=== PATIENT | male | born 1965 | race Caucasian/White ===

== ENCOUNTER 2025-04-14 22:20 | Inpatient (IN) | payer OTHER, SELFPAY ==
[2025-04-14 18:19] VITALS: BP 149/86
[2025-04-14 18:52] LABS: Hematocrit 44.1 % (39.0-52.0); Hemoglobin 15.1 g/dL (13.0-18.0); Mean Corp Hgb Conc. 34.2 g/dL (33.0-37.0); Mean Corpuscular Volume 87.8 fL (80.0-94.0); Nucleated Red Blood Cells % 0 % (-); Platelet Count 270 10^3/uL (130-400); Red Cell Dist. Width 12.2 % (11.5-14.5)
[2025-04-14 19:13] LABS: ALT (SGPT) 26 U/L (0-50); AST (SGOT) 17 U/L (17-59); Albumin 4.7 g/dl (3.5-5.0); Alkaline Phosphatase 72 U/L (38-126); Blood Urea Nitrogen 27 mg/dl (9-20); Calcium 9.9 mg/dl (8.4-10.2); Carbon Dioxide 23 mmol/L (22-30); Chloride 102 mmol/L (98-107); Glucose 228 mg/dl (70-99); Potassium 5.1 mmol/L (3.5-5.1); Sodium 139 mmol/L (135-145); Total Protein 7.8 g/dl (6.3-8.2); eGFR > 60.00
--- NOTE | 2025-04-14 19:55 | ED.GENMED ---
History of Present Illness
General
Chief Complaint: Skin Problem
Source: patient and family
Time Seen by Provider: 04/14/25 19:39
History of Present Illness
History of Present Illness:
This patient is a 59-year-old male who says he was feeling perfectly well until Wednesday or Wednesday when he noticed that his right foot was 'sore'. He says he inspects his feet every night and he did not notice any abnormality such as swelling or
redness. He thought it may be related to the [place] he was doing in the garden. , he also noted his foot was sore but again no skin abnormalities noted. However, yesterday, he noted increasing pain associated with an area of redness and
an actual open 'sore' at the top of his right foot. He saw his PCP and was started on Augmentin 875 twice daily. He has been compliant with his antibiotics. However, today he notes increasing pain as well as redness and swelling. He denies
fever, chills, anorexia, nausea, vomiting, numbness, tingling, or other complaints.
Past History
Past History
ED Past Medical History: HTN, Hypercholesterolemia and IDDM
ED Past Surgical History: Other (Retinal detachment)
Social History
Tobacco: Non-smoker
Alcohol: Occasional
Drug: Marijuana
Personal:
Phy Exam
Physical Exam
Physical Exam:
GENERAL: Alert , in no apparent distress
EYE: pupils equal and reactive
NECK: Supple, no significant adenopathy.
ENT: o/p clr, mmm.
CARDIAC: Regular rate and rhythm .
LUNGS: Clear breath sounds bilaterally, no acute respiratory distress, no wheezes/rales/rhonchi
ABDOMEN: Soft, without focal tenderness, no r/g, no cvat
NEUROLOGICAL: Alert and oriented, no focal neuro deficits
SKIN: Warm and dry, there is an approx 2 cm open superficial wound at distal R forefoot, wet but without active drainage, with surround eryhtmea/warmth/swelling/ttp extend to prox forefoot (edema to ankle/lower calf). No crepitus, streaking.
Pulses nl
MUSCULOSKELETAL: Well perfused.
PSYCH: Normal and appropriate interaction.
Sepsis
Sepsis Screening
Sepsis Assessment: Sepsis
Sepsis Screen
Sepsis Screen: Sepsis
Date: 04/14/25
Time: 21:27
Course
Orders/Labs/Results
Orders:
Orders
04/14/25 18:36
Complete Blood Count/With Diff Urgent
Comprehensive Metabolic Panel Urgent
Lactic Acid Q4H
Comment: ON ICE, CANCEL 2ND ORDER IF FIRST LACTIC ACID LEVEL <2
Blood Culture Urgent
LUCIA Source: Blood/Venous
Specimen Description:
04/14/25 19:53
Ampicillin/Sulbactam 3 G [Unasyn] 3 gm 0.9% Sodium Chloride 100 ml [Nss] 100 ml IV NOW
Vancomycin [Vancocin] 2,000 mg 0.9% Sodium Chloride 500 ml [Nss] 500 ml IV NOW
CR Foot - Right Min 3 Views Urgent
Comment:
Reason For Exam: diabetes, foot infx
US Legs, Right [US Periph Venous LOWER Ext RT] Urgent
Comment:
Reason For Exam: swelling
04/14/25 20:08
Ampicillin/Sulbactam 3 G [Unasyn] 3 gm 0.9% Sodium Chloride 100 ml [Nss] 100 ml IV NOW
Vancomycin [Vancocin] 2,000 mg 0.9% Sodium Chloride 500 ml [Nss] 500 ml IV NOW
04/14/25 20:18
Morphine Sulfate 4 mg IV NOW STA
04/14/25 20:34
EKG [Electrocardiogram (*1)] Urgent
Reason for Study: Tachycardia
04/14/25 20:41
0.9% Sodium Chloride 1000 ml [Nss] 2,500 ml IV NOW STA
04/14/25 22:30
Lactic Acid Q4H
Comment: ON ICE, CANCEL 2ND ORDER IF FIRST LACTIC ACID LEVEL <2
Abnormal Lab Results
04/14/25
18:36
WBC 14.3 H 10^3/uL
(4.8-10.8)
Abs Immat Gran (auto) 0.1 H 10^3/uL
(0-0.05)
Absolute Neuts (auto) 10.6 H 10^3/uL
(1.4-6.5)
Absolute Monos (auto) 1.6 H 10^3/uL
(0.1-0.6)
Lymphocytes % 12.4 L %
(20.5-51.1)
Monocytes % 11.3 H %
(1.7-9.3)
BUN 27 H mg/dl
(9-20)
Glucose 228 H mg/dl
(70-99)
04/14/25 18:36
04/14/25 18:36
Vital Signs
Initial and Last Documented VS:
Initial Vital Signs
Temp Pulse Resp BP Pulse Ox
99.4 F 116 18 149/86 98
04/14/25 18:19 04/14/25 18:19 04/14/25 18:19 04/14/25 18:19 04/14/25 18:19
Last Documented Vital Signs
Temp Pulse Resp BP Pulse Ox
99.4 F 116 18 149/86 98
04/14/25 18:19 04/14/25 18:19 04/14/25 18:19 04/14/25 18:19 04/14/25 19:58
*Pulse Oximetry
SaO2: 98
Oxygen Mode of Delivery: Room air
Patient hypoxic: no
*Critical Care Note
Total Time (30-74mins, 75-104mins- exclusive of procedures): Not Applicable
Update Note
Update Note:
Patient presents to the Emergency Department with right foot redness and swelling
Number and Complexity of Problems Addressed at the Encounter
� Chronic conditions affecting care:
� Acute Exacerbation and/or Progression of Chronic Illness:
� Differential Diagnosis includes: Not limited to cellulitis, abscess, osteomyelitis, DVT, etc. etc.
Amount and/or Complexity of Data to be Reviewed and Analyzed
� I performed an independent evaluation of and my interpretation is:
EKG:
CT:
Xrays: Read by me NAD
Laboratory Studies: Leukocytosis noted, mild prerenal azotemia, mild hyperglycemia
Other: Ultrasound lower extremity read by vision no DVT noted
� Review of other/old records reveals:
� Clinical information was obtained by an independent historian: Ex- who is at bedside and retrieved his antibiotics so that she was able to specifically identify what he was taking.
� Prescriptions/Medications Considered but not given:
� Further testing considered but not performed:
Risk of Complications and/or Morbidity or Mortality of Patient Management
� Social determinants of health affecting care:
� Discussion with other providers (PCP, Hospitalists, Consultants, etc):
� Escalation of care including admission/observation vs risk of discharge considered: Case discussed with Dr. Isra Paz for admission to the hospital.
ED Attending Note
-
Portions of this chart may have been created with voice recognition software.� Occasional wrong word or��sound alike� substitutions may have occurred due to the inherent limitations of voice recognition software.
Discharge Plan
Departure
Patient Disposition: Admit
Date of Disposition: 04/14/25
Time of Disposition: 20:21
Admit to: Telemetry
Presentation/result/management discussed w/ accepting MD/DO: Hospitalist
Condition: Fair
Discharge Problem:
Diabetic foot infection
Referrals:
UNKNOWN - PT DOES,NOT KNOW [Unknown Provider]
Interventions
Interventions:
*Risk Screen - Suicide Last Done: 04/14/25 18:19
*General Assessment Last Done: 04/14/25 18:19
*Neglect/Abuse Screening Last Done: 04/14/25 18:19
Discharge Date and Time
Print Language: ICELANDIC
[2025-04-14] MEDS: MORPHINE SULFATE 4 MG IV (20:30)
[2025-04-14 20:45] VITALS: BMI 27.0
[2025-04-14] MEDS: UNASYN IV (21:12)
[2025-04-14] MEDS: NSS 2500 ML IV (21:16)
[2025-04-14 21:44] VITALS: BP 133/68
--- NOTE | 2025-04-14 21:48 | HPS.HSE ---
Family Physician
-
Family Physician: Narinder Fitzpatrick
Chief Complaint
-
R Foot Pain
History of Present Illness
Patient is a 59y M with PMH significant for DM-II who presents to ED complaining of R foot pain and redness. Patient states that he was doing digging in his yard on Wednesday and noted some discomfort in his R foot which he attributed to the
activity. He noted some persistent pain since that time but no skin changes, redness, etc. On Wednesday AM he woke to find his R foot very swollen, red and with wound on the dorsum of the foot between the first and second digits. He was seen by his
PCP and prescribed Augmentin. Today he noted that his pain and swelling were increased and he presented to the ED for further evaluation.
Patient had nausea with a single episode of nausea here in the ED.
No fevers / chills.
Medical History
Past Medical History
Past Medical History: Reports Other
Additional Past Medical History:
DM-II
Hypertension
Hyperthyroidism
Past Surgical History: Reports Other
Additional Past Surgical History:
Left Hand Surgery
Social History
Tobacco: Former Smoker
Alcohol: None
Drug: Marijuana
Family History
Family History: Not pertinent
Allergies / Home Medications
Allergies reflects when Allergies were last updated in [employer].
Home Medications with original date entered in [employer]
Allergy/Medication List:
Allergies
Allergy/AdvReac Type Severity Reaction Status Date / Time
No Known Allergies Allergy Unverified 04/14/25 18:18
Home Medications
amoxicillin 875 mg-potassium clavulanate 125 mg tablet 1 tab PO BID 04/14/25
empagliflozin 25 mg tablet (Jardiance) 25 mg PO DAILY 04/14/25
insulin lispro 100 unit/mL subcutaneous solution 04/14/25
lisinopril 10 mg tablet 10 mg PO DAILY 04/14/25
methimazole 5 mg tablet 5 mg PO HS 04/14/25
rosuvastatin 5 mg tablet 5 mg PO HS 04/14/25
Review of Systems
-
History Source: Patient
A 12 point ROS was completed and negative except as noted: Yes
Constitutional: Denies Fever or Chills
Respiratory: Denies Cough or Trouble Breathing
Cardiac: Denies Chest Pain or Palpitations
Abdomen/GI: Reports Nausea and Vomiting; Denies Abdominal Pain or Diarrhea
Musculoskeletal: Reports Joint Pain, Joint Swelling and Edema
Skin: Reports Other (Redness / R foot wound.)
Neurological: Denies Dizzy or Headache
Physical Exam
Vital Signs
Vital Signs
Temp Pulse Resp BP Pulse Ox
99.4 F 100 14 133/68 98
04/14/25 18:19 04/14/25 21:44 04/14/25 21:44 04/14/25 21:44 04/14/25 21:44
Physical Exam
General: Other (59y M in no acute distress.)
HEENT: Moist mucous membranes and PERRLA
Respiratory: Clear; No Wheezes, Rales or Rhonchi
Cardiac: S1/S2 and Regular Rhythm; No Murmur
GI: Soft, Non Tender, Non Distended and Normal Bowel Sounds
Musculoskeletal: No Clubbing, No Cyanosis and Other (Edema of the R foot.)
Skin: Other (Erythema over the dorsum of the R foot. Superficial, crusted wound between 1st / 2nd toes.)
Neuro: AO x 3
Laboratory Results
-
04/14/25 18:36
04/14/25 18:36
Laboratory Results
Lactic Acid 1.7 mmol/L (0.7-2.0) 04/14/25 18:36
Total Bilirubin 0.8 mg/dl (0.2-1.3) 04/14/25 18:36
AST 17 U/L (17-59) 04/14/25 18:36
ALT 26 U/L (0-50) 04/14/25 18:36
Alkaline Phosphatase 72 U/L (38-126) 04/14/25 18:36
Impression/Plan
-
A/P: Patient is a 59y M with PMH significant for HTN and DM-II who presents to ED complaining of R foot pain, swelling and redness.
Diabetic Foot Infection
Sepsis secondary to the above
- Admit for further evaluation and treatment.
- Patient presented with temp = 99.4, tachycardia, leukocytosis and evident R foot infection.
- IV abx with Vanco / Zosyn for now.
- Podiatry evaluation for additional recommendations.
- US in the ED negative for DVT.
- X-ray with no evident bony changes.
- Follow temp curve and monitor for any new symptoms / complaints.
DM-II
- Stable. Continue own insulin pump / monitoring.
- Continue Jardiance.
- Update A1C.
Benign Hypertension
- Stable. Continue current med regimen with holding parameters.
Hyperthyroidism
- Continue methimazole.
- Monitor for tachyarrhythmia, hyperglycemia, etc.
- Update TFTs.
DVT Prophylaxis: Lovenox
Code Status: Full
[2025-04-14] MEDS: VANCOCIN 540 MG IV (21:49)
[2025-04-14 23:00] VITALS: BP 143/86
--- NOTE | 2025-04-14 23:04 | PHA.VAN.IN ---
Assessment
- Assessment
Renal Function: Unknown baseline
Maximum Temperature: 99.4F
Concomitant Antimicrobials: Zosyn
AUC Dosing Plan
- Dosing Variables
Dosing Weight (kg): 80.4
Dosing CrCl (ml/min): 58
Vd coefficient (L/kg): 0.7
- Empiric Dosing
Initial / Loading Dose: 2000MG X1
Maintenance Regimen: 1500MG Q24H
Estimated AUC (mcg*h/mL): 527
Estimated Peak (mcg*h/mL): 37.2
Estimated Trough (mcg/ml): 11.4
Estimated Half Life (H): 13.2
- Monitoring
No levels ordered at this time: Awaiting steady state
Pharmacokinetics Vancomycin I
- -
Patient Age: 59
Patient Sex: Male
Vancomycin Day #: 1
Indication: Diabetic Foot
Requesting Provider: Jackson
Pertinent Antimicrobial Allergies:
NKDA
Height / Weight:
Height 5 ft 8 in
Actual Weight 80.4 kg
Pertinent Past Medical History: R foot wound when digging in garden, Augmentin failure
- Vital Signs / Lab Results
Temp Pulse Resp BP Pulse Ox
99.4 F 100 14 133/68 98
04/14/25 18:19 04/14/25 21:44 04/14/25 21:44 04/14/25 21:44 04/14/25 21:44
Lab Results - Hematology
04/14/25
18:36
WBC 14.3 H
Lab Results - Chemistry
04/14/25
18:36
BUN 27 H
Creatinine 1.3
Albumin 4.7
04/14/25 04/14/25
18:36 18:36
Lactic Acid 1.7 Cancelled
[2025-04-14] MEDS: CRESTOR 5 MG PO (23:36)
[2025-04-14] MEDS: TAPAZOLE 5 MG PO (23:36)
[2025-04-15] MEDS: PT'S OWN INSULIN PUMP - HumaLOG SC ×2 (00:05→07:09)
[2025-04-15] MEDS: ZOSYN 50 IV ×4 (02:12→21:01)
[2025-04-15 06:00] VITALS: BMI 27.1
[2025-04-15 07:15] VITALS: BP 159/86
[2025-04-15 08:07] LABS: Glucose - Point of Care 82 mg/dl (70-99)
[2025-04-15 08:09] LABS: Blood Urea Nitrogen 22 mg/dl (9-20); Calcium 9.0 mg/dl (8.4-10.2); Carbon Dioxide 22 mmol/L (22-30); Chloride 109 mmol/L (98-107); Estimated Creatinine Clearance 75 ml/min; Glucose 83 mg/dl (70-99); Potassium 4.9 mmol/L (3.5-5.1); Sodium 139 mmol/L (135-145); eGFR > 60.00
--- NOTE | 2025-04-15 08:18 | PHA.VAN.FU ---
Addendum entered and electronically signed by Felipe Bernal [facility] 04/15/25 08:24:
change to 1000mg q12h, crcl ~75ml/min, should provide ikt=486, trough=15.4, t1/2=10.4hr
Original Note:
Vancomycin Assessment / Plan
- Assessment
Renal Function: SCR Decreasing
WBC's are: Stable
In the past 24 hrs, patient has been: Afebrile
Concomitant Antimicrobials: ZOSYN
- Dosing Plan
Continue: 1500MG Q24H
- Monitoring Plan
No level(s) ordered at this time: CONSIDER AT STEADY STATE
- Follow Up
Pharmacy will continue to follow.
Vancomycin Follow UP
- -
Patient Age: 59
Patient Sex: Male
Vancomycin Day #: 2
Indication: Diabetic Foot
Requesting Provider: Jackson
Pertinent Antimicrobial Allergies:
NKDA
Height / Weight:
Height 5 ft 8 in
Actual Weight 80.853 kg
Pertinent Past Medical History: R foot wound when digging in garden, Augmentin failure
- Vital Signs / Lab Results
Temp Pulse Resp BP Pulse Ox
98.4 F 92 18 159/86 97
04/15/25 07:15 04/15/25 07:15 04/15/25 07:15 04/15/25 07:15 04/15/25 07:15
Lab Results - Hematology
04/14/25
18:36
WBC 14.3 H
Lab Results - Chemistry
04/14/25 04/15/25
18:36 07:00
BUN 27 H 22 H
Creatinine 1.3 1.0
Estimated Creat Clear 75
Albumin 4.7
04/14/25 04/14/25
18:36 18:36
Lactic Acid 1.7 Cancelled
[2025-04-15 08:58] LABS: Hepatitis C Antibody Negative (Negative)
[2025-04-15] MEDS: ZESTRIL 10 MG PO (09:09)
[2025-04-15] MEDS: FARXIGA 10 MG PO (09:10)
[2025-04-15 09:22] LABS: Hematocrit 38.5 % (39.0-52.0); Hemoglobin 13.0 g/dL (13.0-18.0); Mean Corp Hgb Conc. 33.8 g/dL (33.0-37.0); Mean Corpuscular Volume 89.1 fL (80.0-94.0); Platelet Count 210 10^3/uL (130-400); Red Cell Dist. Width 12.1 % (11.5-14.5)
--- NOTE | 2025-04-15 10:27 | W.PN.HOSP.TC ---
Today's Communication/Plan
-
Continue antibiotics
Assessment / Plan
Assessment / Plan
Patient is a 59y M with PMH significant for HTN and DM-II who presents to ED complaining of R foot pain, swelling and redness.
Abnormal ECG
1. Diabetic Foot Infection with Sepsis secondary to the above
- Patient presented with temp = 99.4, tachycardia, leukocytosis and evident R foot infection.
- IV abx with Vanco / Zosyn for now.
- Podiatry evaluation for additional recommendations.
- US in the ED negative for DVT.
- X-ray with no evident bony changes.
- Follow temp curve and monitor for any new symptoms / complaints.
2. DM-II - Stable. Insulin dependent
Continue own insulin pump / monitoring.
- Continue Jardiance.
- Update A1C.
3. Benign Hypertension - Stable.
Continue current med regimen with holding parameters.
4. Hyperthyroidism
- Continue methimazole.
- Monitor for tachyarrhythmia, hyperglycemia, etc.
- Update TFTs.
5. Abnormal ECG - no symptoms
Outpatient follow up
Will need risk stratification
DVT Prophylaxis: Lovenox
Code Status: Full
Anticipated Discharge: 24 - 48 hours
Subjective/Interval History
-
Date of Service: April 15, 2025
No new problems.
Objective Data
-
Labs:
Laboratory Results
04/15/25 04/15/25
07:00 07:01
WBC 10.3
Hgb 13.0
Hct 38.5 L
Plt Count 210 D
Sodium 139
Potassium 4.9
Chloride 109 H
Carbon Dioxide 22
BUN 22 H
Creatinine 1.0
Glucose 83
Calcium 9.0
Vital Signs:
Vital Signs
Temp Pulse Resp BP Pulse Ox
98.4 F 92 18 159/86 97
04/15/25 07:15 04/15/25 09:09 04/15/25 07:15 04/15/25 09:09 04/15/25 07:15
I&O
04/14/25 04/15/25 04/16/25
06:59 06:59 06:59
Intake Total 480 / 480
Balance 480 / 480
Review of Systems
-
History Source: Patient
All other systems: Reviewed and negative
Physical Exam
-
General: Well Developed, Well Nourished, No Apparent Distress and Comfortable
HEENT: Normocephalic, Atraumatic, Moist Mucous Membranes, Nose Appears Normal and Ears Appear Normal
Respiratory: Clear to Auscultation
Cardiac: Regular Rhythm and S1/S2
GI: Soft, Nontender and Nondistended
Musculoskeletal: No Clubbing, No Cyanosis and No Edema
Skin: Warm, Dry and Lesions (red right foot with wound on top.)
Neuro: Awake, Alert, Oriented and AO x 3
Psych: Calm
Data Reviewed
-
Labs: Labs Reviewed by me
--- NOTE | 2025-04-15 12:15 | W.CS.POD ---
Addendum entered and electronically signed by Riaz Cruz DPM 04/19/25 12:22:
ADDENDUM:
With the use of a #15 blade, the wound and suspected underlying abscess of the dorsal right forefoot, just proximal to the first interdigital space, was incised, approximately 0.5cm in length and 2-3mm in depth, resulting in 0.5 cc of seropurulent
discharge. This was further expressed from the foot. The wound/purulence was cultured, and the area thoroughly irrigated with saline. In addition, with the use of a #15 blade, excisional debridement of partial skin thickness, necrotic and fibrinous
soft tissue removal was performed on the dorsal right forefoot wound.
Original Note:
Consult Summary - Podiatry
-
Patient is a 59 year old male with PMH of Type 2 Diabetes Mellitus, Hypertension, and Hyperthyroidism admitted yesterday for a diabetic wound infection and cellulitis of his right foot. The patient relates having been working/digging in the yard 6
days ago and experienced some mild pain in the foot at the end of the day and the next. 4 days later he noticed development of significant redness, swelling and pain along with a 'blister' over the top of the right foot at the base of the first and
second toes. He visited his PCP that same day ([facility]) and was given RX for Augmentin. When his symptoms did not improve yesterday, he presented to the ED.
Today he denies fever, chills or sweats and reports the redness and swelling is significantly less intense today. He reports only mild discomfort in the right foot.
PMH, Medications and Allergies reviewed in chart
-WBC 14.3 on admission, 10.3 today
-LE U/S in ED negative for DVT
-Blood Cultures: PND
-Patient currently on IV Vanco/Zosyn
-No Wound Culture taken.
04/14/25 XRAYS RIGHT FOOT:
No ossous erosion, periosteal reaction, or cortical disruption note. Mild increase in soft tissue density of the forefoot dorsally and plantarly. No gas in the tissues. No evidence of osteomyelitis.
Afebrile, Mildly hypertensive
LE exam:
Vascular status to LE's grossly intact. Mild decrease in protective sensation to the forefoot, bilaterally.
There is a bullous skin lesion/wound approximately 1.5-2.0 cm diameter at the base of the first/second toe interspace dorsally. There is superficial crusting and underlying maceration locally but no active discharge. Light debridement of the wound
reveals a 0.5cm defect, full skin thickness with 1cc of purulent discharge expressed. This does not probe into the deep interspace, however there is mild pain elicited with pressure dorsally and plantarly. The cellulitis extends 4-5cm proximally
from the wound/interspace dorsally. No cellulitis extending plantarly.
Assessment:
Diabetic infection, right foot with cellulitis.
DM-II with mild peripheral neuropathy.
Hypertension
Hyperthyroidism
Plan:
With a #15 blade, Light partial skin thickness debridement of non-viable tissue of the dorsal right foot at beside, with purulence encountered.
Wound culture taken at bedside, the extent of cellulitis marked, and dressing applied.
Continue on IV antibiotics. Wound care orders.
Will monitor over next day or so and if no progress is made, will consider MRI to rule out deeper space abscess.
[2025-04-15 12:35] LABS: Glycohemoglobin (HgbA1c) 7.6 % (4.0-5.6)
[2025-04-15 13:11] LABS: Glucose - Point of Care 111 mg/dl (70-99)
--- NOTE | 2025-04-15 15:14 | CM ---
station manager reviewed patient's chart and met with patient and patient's daughters live with him in a multilevel home, patient was independent with adl's and ambulation, no dme. patient with right foot wound home when stable, no needs.
Plan; Home no needs.
PCP: Dr Fitzpatrick
Pharmacy: [facility] in [place].
[2025-04-15] MEDS: PT'S OWN INSULIN PUMP - HumaLOG 7.3 UNIT SC (15:39)
[2025-04-15 15:58] VITALS: BP 154/76
[2025-04-15] MEDS: DILAUDID 0.5 MG IV (16:23)
[2025-04-15 17:08] LABS: Glucose - Point of Care 112 mg/dl (70-99)
[2025-04-15] MEDS: LOVENOX 40 MG SC (17:16)
[2025-04-15] MEDS: VANCOCIN 200 IV (17:17)
[2025-04-15] MEDS: PT'S OWN INSULIN PUMP - HumaLOG 12.5 UNIT SC (18:00)
[2025-04-15] MEDS: CRESTOR 5 MG PO (21:01)
[2025-04-15] MEDS: TAPAZOLE 5 MG PO (21:01)
[2025-04-15 21:33] LABS: Glucose - Point of Care 288 mg/dl (70-99)
[2025-04-15 23:00] VITALS: BP 149/84
[2025-04-16] MEDS: ZOSYN 50 IV ×4 (02:20→20:49)
[2025-04-16] MEDS: VANCOCIN 200 IV ×2 (05:21→18:14)
[2025-04-16 06:00] VITALS: BMI 26.9
[2025-04-16 07:00] VITALS: BP 134/80
[2025-04-16 07:32] LABS: Glucose - Point of Care 125 mg/dl (70-99)
[2025-04-16] MEDS: FARXIGA 10 MG PO (08:02)
[2025-04-16 08:20] LABS: Hematocrit 41.7 % (39.0-52.0); Hemoglobin 14.0 g/dL (13.0-18.0); Mean Corp Hgb Conc. 33.6 g/dL (33.0-37.0); Mean Corpuscular Volume 88.7 fL (80.0-94.0); Platelet Count 243 10^3/uL (130-400); Red Cell Dist. Width 12.0 % (11.5-14.5)
[2025-04-16] MEDS: ZESTRIL 10 MG PO (08:52)
[2025-04-16] MEDS: PT'S OWN INSULIN PUMP - HumaLOG 6.65 UNIT SC (09:23)
[2025-04-16 10:28] LABS: Blood Urea Nitrogen 20 mg/dl (9-20); Calcium 9.1 mg/dl (8.4-10.2); Carbon Dioxide 23 mmol/L (22-30); Chloride 105 mmol/L (98-107); Estimated Creatinine Clearance 68 ml/min; Glucose 104 mg/dl (70-99); Potassium 4.4 mmol/L (3.5-5.1); Sodium 139 mmol/L (135-145); eGFR > 60.00
--- NOTE | 2025-04-16 10:31 | W.PN.POD ---
Today's Communication
Today's Communication
Interim reduction in edema/cellulitis. No purulence.
Continue IV Antibiotics. Will follow.
Assessment / Plan
-
Assessment:
Diabetic infection, right foot with cellulitis.
DM-II with mild peripheral neuropathy.
Hypertension
Hyperthyroidism
Plan:
Edema significantly reduced, cellulitis consolidating.
Continue on IV antibiotics.
Await full culture results.
Wound care consult.
Will continue to monitor progress, and if no progress is made, will consider MRI to rule out deeper space abscess.
Subjective
Chief Complaint
Diabetic infection, right foot.
Subjective
Patient resting comfortably, reporting decrease in pain in the foot. 'Feels like a sunburn now.'
Objective
-Blood culture: 24 hours, no growth
-Wound Culture: Prelim: Moderate gram positive cocci.
-WBC 14.3 on admission, 9.6 today
-BG 104
-Patient currently on IV Vanco/Zosyn
04/14/25 XRAYS RIGHT FOOT:
No ossous erosion, periosteal reaction, or cortical disruption note. Mild increase in soft tissue density of the forefoot dorsally and plantarly. No gas in the tissues. No evidence of osteomyelitis.
Temp Pulse Resp BP Pulse Ox
98.5 F 80 14 134/80 99
04/16/25 07:00 04/16/25 08:52 04/16/25 07:00 04/16/25 08:52 04/16/25 07:00
04/16/25 06:44
04/16/25 09:03
Vital Signs and Lab results were reviewed.
Afebrile, VSS.
LE exam:
Vascular status to LE's grossly intact. Mild decrease in protective sensation to the forefoot, bilaterally.
Moderate reduction in edema of the right foot, specifically of the dorsal forefoot, with localized deepening of the redness noted, likely ecchymotic in nature.
Bullous skin lesion/wound approximately 1.5-2.0 cm diameter at the base of the first/second toe interspace dorsally. Today there is maceration locally, seemingly consolidating, with no active discharge. No malodor.
Full skin thickness defect approximately 0.5cm probes to a depth of 0.4cm however this does not probe into the deep interspace. Much less pain elicited with pressure dorsally and plantarly.
--- NOTE | 2025-04-16 10:41 | PHA.VAN.FU ---
Vancomycin Assessment / Plan
- Assessment
Renal Function: Stable
WBC's are: WNL
In the past 24 hrs, patient has been: Afebrile
Concomitant Antimicrobials: PIPERACILLIN/TAZOBACTAM
- Dosing Plan
Continue: VANCO 1000MG Q12H
- Monitoring Plan
Peak Level: 04/16 @2100
Trough Level: 04/17 @0530
- Follow Up
Pharmacy will continue to follow.
Vancomycin Follow UP
- -
Patient Age: 59
Patient Sex: Male
Vancomycin Day #: 3
Indication: Diabetic Foot
Requesting Provider: Jackson
Pertinent Antimicrobial Allergies:
NKDA
Height / Weight:
Height 5 ft 8 in
Actual Weight 80.331 kg
Pertinent Past Medical History: R foot wound when digging in garden, Augmentin failure
- Vital Signs / Lab Results
Temp Pulse Resp BP Pulse Ox
98.5 F 80 14 134/80 99
04/16/25 07:00 04/16/25 08:52 04/16/25 07:00 04/16/25 08:52 04/16/25 07:00
Lab Results - Hematology
04/14/25 04/15/25 04/16/25
18:36 07:01 06:44
WBC 14.3 H 10.3 9.6
Lab Results - Chemistry
04/14/25 04/15/25 04/16/25
18:36 07:00 06:44
BUN 27 H 22 H Cancelled
Creatinine 1.3 1.0 Cancelled
Estimated Creat Clear 75 Cancelled
Albumin 4.7
04/16/25
09:03
BUN 20
Creatinine 1.1
Estimated Creat Clear 68
Albumin
04/14/25 04/14/25
18:36 18:36
Lactic Acid 1.7 Cancelled
Microbiology Results
04/14/25 18:36 Blood Culture - Preliminary
Blood/Venous No Growth in 24 hours- Final report to follow
04/15/25 13:36 Gram Stain - Preliminary
Foot - Right
[2025-04-16 11:36] LABS: Glucose - Point of Care 139 mg/dl (70-99)
[2025-04-16] MEDS: PT'S OWN INSULIN PUMP - HumaLOG 8.25 UNIT SC (14:11)
[2025-04-16 15:00] VITALS: BP 140/81
--- NOTE | 2025-04-16 15:40 | WOUNDNOTE ---
[facility] RN note: Patient admitted with diabetic foot infection and cellulitis.
See H&P for complete history.
PMH: IDDM,HTN.
Wound Location and type/assessment: Patient admitted with: Redness, swelling of R foot, infected diabetic ulcer. Base of dorsal toe with yellow slough, red base distally, small drainage, no odor. Patient states blistering started after doing some
digging in the yard then it started to get red. Failed outpatient antibiotics. Patient reports much less redness since admission. + palpable pedal pulse, heels intact. Wound culture + for staph. Dr Guevara made aware.
Appetite: Good.
Pressure redistribution devices in place: Accumax, R leg elevated on several pillows.
Plan: Confirmed with Dr. Cruz local wound care with Santyl to slough daily. Leg elevation. Teaching done with patient regarding wound care and confirmed that patient can do himself. Updated care plan and will follow as needed.
Note to case management of equipment requested for discharge: None.
Recommend follow up with Dr. Cruz.
--- NOTE | 2025-04-16 15:43 | W.PN.HOSP.TC ---
Today's Communication/Plan
-
Assessment / Plan
Assessment / Plan
General: No Apparent Distress, Comfortable and Conversant
HEENT: NormoCephalic, Moist mucous membranes, Atraumatic
Respiratory: Clear and Non Labored Respirations
Cardiac: S1/S2 and Regular Rhythm; No Rub or Gallop
GI: Soft, Non Tender, Non Distended and Normal Bowel Sounds
Musculoskeletal: No Edema, dorsal right foot wound between 1st and 2nd digits
: NO Delong
Neuro: Awake, Alert, Nonfocal/grossly intact
Psych: Calm and Intact Judgment/Insight
Patient is a 59y M with PMH significant for HTN and DM-II who presents to ED complaining of R foot pain, swelling and redness.
Abnormal ECG
1. Diabetic Foot Infection with Sepsis secondary to the above
- Patient presented with temp = 99.4, tachycardia, leukocytosis and evident R foot infection.
- IV abx with Vanco / Zosyn for now.
- Podiatry following, status post I&D at bedside yesterday 04/15
- Clinically improving today
- X-ray with no evident bony changes.
- Follow temp curve and monitor for any new symptoms / complaints.
- Tight glucose control
2. DM-II - Stable. Insulin dependent
- Continue own insulin pump / monitoring.
- Continue SGLT2 inhibitor, is on Jardiance at home and Farxiga while inpatient.
- Hemoglobin A1c 7.6% this admission
3. Benign Hypertension - Stable.
- Continue current med regimen with holding parameters.
4. Hyperthyroidism
- Continue methimazole.
- Monitor for tachyarrhythmia, hyperglycemia, etc.
- Low TSH, free T4 within normal limits
5. Abnormal ECG - no symptoms
Outpatient follow up
DVT Prophylaxis: Lovenox
Code Status: Full
Anticipated Discharge: 24 - 48 hours
Subjective/Interval History
-
Date of Service: April 16, 2025
Patient was seen and examined at bedside this morning. Foot wound appears to be improving, he is experiencing some mild pain.
Objective Data
-
Labs:
Laboratory Results
04/16/25 04/16/25
06:44 09:03
WBC 9.6
Hgb 14.0
Hct 41.7
Plt Count 243
Sodium Cancelled 139
Potassium Cancelled 4.4
Chloride Cancelled 105
Carbon Dioxide Cancelled 23
BUN Cancelled 20
Creatinine Cancelled 1.1
Glucose Cancelled 104 H
Calcium Cancelled 9.1
Vital Signs:
Vital Signs
Temp Pulse Resp BP Pulse Ox
98.4 F 90 20 140/81 98
04/16/25 15:00 04/16/25 15:00 04/16/25 15:00 04/16/25 15:00 04/16/25 15:00
I&O
04/15/25 04/16/25 04/17/25
06:59 06:59 06:59
Intake Total 480 / 480 1680 / 1680
Balance 480 / 480 1680 / 1680
Review of Systems
-
History Source: Patient
All other systems: Reviewed and negative
Skin: Reports Other (Painful right foot wound)
Physical Exam
-
General: No Apparent Distress
[2025-04-16 16:49] LABS: Glucose - Point of Care 135 mg/dl (70-99)
[2025-04-16] MEDS: LOVENOX 40 MG SC (18:14)
[2025-04-16] MEDS: PT'S OWN INSULIN PUMP - HumaLOG 7.25 UNIT SC (18:22)
[2025-04-16] MEDS: CRESTOR 5 MG PO (20:49)
[2025-04-16] MEDS: TAPAZOLE 5 MG PO (20:49)
[2025-04-16 21:24] LABS: Glucose - Point of Care 183 mg/dl (70-99)
[2025-04-16 23:00] VITALS: BP 140/87
[2025-04-17] MEDS: ZOSYN 50 IV ×3 (01:18→13:16)
[2025-04-17 06:00] VITALS: BMI 26.6
[2025-04-17] MEDS: VANCOCIN 200 IV (06:19)
[2025-04-17 07:14] LABS: Glucose - Point of Care 123 mg/dl (70-99)
[2025-04-17 07:45] VITALS: BP 137/76
[2025-04-17] MEDS: ZESTRIL 10 MG PO (07:49)
[2025-04-17] MEDS: SANTYL OINTMENT 1 APPLIC TOPICAL (07:49)
[2025-04-17] MEDS: FARXIGA 10 MG PO (07:49)
--- NOTE | 2025-04-17 09:17 | PHA.VAN.FU ---
Vancomycin Assessment / Plan
- Assessment
Renal Function: Stable
WBC's are: WNL
In the past 24 hrs, patient has been: Afebrile
Concomitant Antimicrobials: Zosyn
- Assessment - Therapeutic Drug Monitoring
Extrapolated Cmax (mcg/mL): 23.4
Peak level was drawn: Appropriately
Extrapolated Cmin (mcg/mL): 7.9
Trough Drawn: Appropriately
Levels were drawn: At steady state
Calculated AUC (mcg*h/mL): 346
Calculated ke: 0.0981
Calculated half life (H): 7.1
Calculated Vd (L): 58.9
Calculated Vanc CL (ml/min): 96.27
- Dosing Plan
Adjust Regimen to: 1250MG Q12H
New Regimen Predicts: AUC (465)
- Monitoring Plan
No level(s) ordered at this time: awaiting steady state
- Follow Up
Pharmacy will continue to follow.
Vancomycin Follow UP
- -
Patient Age: 59
Patient Sex: Male
Vancomycin Day #: 4
Indication: Diabetic Foot
Requesting Provider: Jackson
Pertinent Antimicrobial Allergies:
NKDA
Height / Weight:
Height 5 ft 8 in
Actual Weight 79.464 kg
Pertinent Past Medical History: R foot wound when digging in garden, Augmentin failure
- Vital Signs / Lab Results
Temp Pulse Resp BP Pulse Ox
98.2 F 74 17 137/76 98
04/17/25 07:45 04/17/25 07:45 04/17/25 07:45 04/17/25 07:45 04/17/25 07:45
Lab Results - Hematology
04/14/25 04/15/25 04/16/25
18:36 07:01 06:44
WBC 14.3 H 10.3 9.6
Lab Results - Chemistry
04/14/25 04/15/25 04/16/25
18:36 07:00 06:44
BUN 27 H 22 H Cancelled
Creatinine 1.3 1.0 Cancelled
Estimated Creat Clear 75 Cancelled
Albumin 4.7
04/16/25
09:03
BUN 20
Creatinine 1.1
Estimated Creat Clear 68
Albumin
04/14/25 04/14/25
18:36 18:36
Lactic Acid 1.7 Cancelled
Microbiology Results
04/15/25 13:36 Wound Culture - Final
Foot - Right S aureus-Methicillin Sensitive
Gram Stain - Final
04/14/25 18:36 Blood Culture - Preliminary
Blood/Venous No Growth in 48 hours- Final report to follow
Therapeutic Drug Monitoring
Vancomycin Peak 19.5 ug/ml (18-26) 04/16/25 21:05
Vancomycin Trough 8.5 ug/ml (5-20) 04/17/25 05:33
[2025-04-17] MEDS: PT'S OWN INSULIN PUMP - HumaLOG SC (09:27)
[2025-04-17 11:28] LABS: Glucose - Point of Care 142 mg/dl (70-99)
[2025-04-17] MEDS: PT'S OWN INSULIN PUMP - HumaLOG 7.4 UNIT SC (12:04)
[2025-04-17] MEDS: PT'S OWN INSULIN PUMP - HumaLOG 8.05 UNIT SC (13:31)
--- NOTE | 2025-04-17 13:31 | W.DCSUMMARY ---
Addendum entered and electronically signed by Aj Osborne DO 04/17/25 14:20:
Correction: Will be discharged on clindamycin instead of Augmentin
Original Note:
Discharge Summary
Discharge Data
Date of Admission: 04/14/25
Date of Discharge: 04/17/25
Total time spent discharging patient (in min): 40
-
Pending Results: No
Hospital Course
Mr. Silva is a 59-year-old male with a medical history of IDDM, hypertension, and hyperthyroidism who presented with pain, redness, and swelling of his right foot. He was tachycardic and had a leukocytosis. He was started on broad-spectrum
antibiotics. Podiatry performed a bedside I&D on 04/15 with purulent drainage. Cultures from I&D grew MSSA sensitive to Augmentin. His pain, redness, and swelling from his right foot dramatically improved. His leukocytosis resolved. He will be
discharged to home with a prescription for Augmentin to continue 7 more days of antibiotic treatment. He will need close outpatient follow-up with podiatry.
General: No Apparent Distress, Comfortable and Conversant
HEENT: NormoCephalic, Moist mucous membranes, Atraumatic
Respiratory: Clear and Non Labored Respirations
Cardiac: S1/S2 and Regular Rhythm; No Rub or Gallop
GI: Soft, Non Tender, Non Distended and Normal Bowel Sounds
Musculoskeletal: No Edema, right foot wound dressing clean dry intact
: NO Delong
Neuro: Awake, Alert, Nonfocal/grossly intact
Psych: Calm and Intact Judgment/Insight
Discharge Plan
-
Patient Disposition: Home (Routine Discharge)
Discharge Diagnosis/Procedures: Sepsis secondary to diabetic foot infection
Activity Restrictions/Additional Instructions:
Wound Care Instructions
Right foot dorsal: Clean with soap and water, Santyl to yellow slough(gregor thick) adaptic and dry dressing daily.
leg elevation when sitting
follow up with Child Care Teacher Dr. Cruz.
Mr. Silva is a 59-year-old male with a medical history of IDDM, hypertension, and hyperthyroidism who presented with pain, redness, and swelling of his right foot. He was tachycardic and had a leukocytosis. He was started on broad-spectrum
antibiotics. Podiatry performed a bedside I&D on 04/15 with purulent drainage. Cultures from I&D grew MSSA sensitive to Augmentin. His pain, redness, and swelling from his right foot dramatically improved. His leukocytosis resolved. He will be
discharged to home with a prescription for Augmentin to continue 7 more days of antibiotic treatment. He will need close outpatient follow-up with podiatry.
Referrals:
Narinder Fitzpatrick MD [Family Provider, [facility]]
Prescriptions:
Continued
lisinopril 10 mg tablet
10 mg PO DAILY
methimazole 5 mg tablet
5 mg PO HS
insulin lispro 100 unit/mL solution
rosuvastatin 5 mg tablet
5 mg PO HS
Jardiance 25 mg tablet
25 mg PO DAILY
amoxicillin-pot clavulanate 875-125 mg tablet
1 tab PO BID 7 Days Qty: 14 0RF
Discharge Orders:
Discharge Patient (As Directed); Ordered 04/17/25
Ordered By: Aj Osborne
Discharge Date and Time
Print Language: LUXEMBOURGER
--- NOTE | 2025-04-17 14:48 | CM ---
CM reviewed chart and noted dc order
Bedside meeting with pt
Per WOC- teaching completed bedside with pt
Pt noted is able to manage care at home
Family will transport home
Discharge Disposition- home, no needs, family transport
[2025-04-17 15:32] VITALS: BP 115/61
[2025-04-17 16:22] LABS: Glucose - Point of Care 105 mg/dl (70-99)
--- NOTE | 2025-04-17 17:51 | W.PN.POD ---
Today's Communication
Today's Communication
Infectious process of right foot resolving. Anticipate patient for discharge today on PO antibiotics.
Will follow in office.
Assessment / Plan
-
Assessment:
Diabetic infection, right foot with cellulitis.
DM-II with mild peripheral neuropathy.
Hypertension
Hyperthyroidism
Plan:
Infectious process of right foot resolving. Anticipate patient for discharge today.
Review of culture/sensitivities results, spoke with hospitalist-RX for PO Clindamycin 300mg PO q6h x 7 days.
Wound care instructions for home. Continue RX Santyl application to wound daily. Dressing change demonstrated at bedside.
Patient will call for appointment in my office for later this week.
Subjective
Chief Complaint
Diabetic foot infection, right
Subjective
Patient resting comfortably in bed. Reports considerable decrease in discomfort. Denies fever, chills or sweats.
Objective
-Blood culture: 48 hours, no growth
-Wound Culture: Prelim: Moderate gram positive cocci; Final: Staph Aureus, Methicillin Sensitive; Most sensitive to Clindamycin.
-WBC 14.3 on admission, now 9.6
-BG 104
04/14/25 XRAYS RIGHT FOOT:
No ossous erosion, periosteal reaction, or cortical disruption note. Mild increase in soft tissue density of the forefoot dorsally and plantarly. No gas in the tissues. No evidence of osteomyelitis.
Temp Pulse Resp BP Pulse Ox
98.9 F 82 17 115/61 98
04/17/25 15:32 04/17/25 15:32 04/17/25 15:32 04/17/25 15:32 04/17/25 15:32
04/16/25 06:44
04/16/25 09:03
Vital Signs and Lab results were reviewed.
Afebrile, VSS.
LE exam:
Vascular status to LE's grossly intact. Mild decrease in protective sensation to the forefoot, bilaterally.
RIGHT FOOT: Significant interval reduction in edema and cellulitis of the dorsal right foot. Localized erythema.
Bullous skin lesion/wound approximately 1.5cm diameter at the base of the first/second toe interspace dorsally, fibrofatty base. Full skin thickness defect approximately 1.0cm probes to a depth of 0.4cm however this does not probe into the deep
interspace. No malodor and no active discharge. Minimal to no pain along the dorsal and plantar forefoot, right.
--- NOTE | 2025-04-18 14:25 | PN.CDI ---
CDI
- -
CDI:
Physician Documentation Request
Admit Date: 04/14/25 22:20
Dear Doctor Nancy,
Please review the following and provide your response in the progress notes.
Clinical Indicators:
PN, 04/15
#With a #15 blade, Light partial skin thickness debridement of non-viable tissue of the
#...dorsal right foot at beside, with purulence encountered.
#Wound culture taken at bedside, the extent of cellulitis marked, and dressing applied.
Based on the above, please provide further clarification regarding the debridement.
Please specify the type of debridement performed:
1. Excisional Debridement - defined as removal by excision of devitalized tissue, necrosis or slough
2. Non-excisional debridement - defined as removal of devitalized tissue, necrosis or slough by such methods as irrigation, brushing, scrubbing or washing.
If the debridement was excisional, please also include:
1. Type of instrument used (#11 blade, #15 blade etc.)
2. What was excised (necrotic tissue, gangrenous tissue, slough etc.)
For excisional or non-excisional, please also include:
1. Depth of debridement (skin, subcutaneous tissue, fascia, muscle, bone etc)
2. Size and appearance of the wound (L, W, D, color of wound, drainage)
Use of terms such as suspected, likely, concern for, or probable (associated with a specific diagnosis that is being evaluated, monitored, or treated as if it exists) are acceptable and can be coded in the inpatient setting, when documented at the
time of discharge.
Thank you,
Soraya Deleon RN BSN CCDS
CDI Specialist
Please contact via tiger text
Please use your independent medical judgment in providing your response.
== END 2025-04-17 18:34 | disposition home or self-care (01) | DRG 854 ==
LOC: 4 WEST ACU 22:20
PROVIDERS: Internal Medicine; ADMITTING PHYSICIAN Hospitalist; ATTENDING PHYSICIAN Internal Medicine; CONSULT PHYSICIAN Podiatrist Foot & Ankle Surgery; EMERGENCY PHYSICIAN Emergency Medicine; FAMILY PHYSICIAN Family Medicine
PROC: 0JBQ0ZZ Excision of Right Foot Subcutaneous Tissue and Fascia, Open Approach (ICD-10-PCS; 2025-04-15)
DX: A41.9 Sepsis, unspecified organism (principal); L03.115 Cellulitis of right lower limb; E11.628 Type 2 diabetes mellitus with other skin complications; S90.821A Blister (nonthermal), right foot, initial encounter; X58.XXXA Exposure to other specified factors, initial encounter; I10 Essential (primary) hypertension; E05.90 Thyrotoxicosis, unspecified without thyrotoxic crisis or storm; E11.40 Type 2 diabetes mellitus with diabetic neuropathy, unspecified; E78.00 Pure hypercholesterolemia, unspecified; R94.31 Abnormal electrocardiogram [ECG] [EKG]; Z87.891 Personal history of nicotine dependence; Z79.899 Other long term (current) drug therapy
CPT/HCPCS: 73630; 80048; 80053; 80202; 82962; 83036; 83605; 84439; 84443; 85025; 85027; 85652; 86803; 87040; 87070; 87147; 87186; 87205; 93005; 93971; 96365; 96366; 96367; 96375; 99285